=== PATIENT | male | born 1960 | race Caucasian/White ===

== ENCOUNTER 2021-12-03 13:26 | Inpatient (IN) ==
[2021-12-03] MEDS ORDERED: 0.9 % Sodium Chloride 1,000 ML IV ONE ×2 (18:05→22:41)
[2021-12-03] MEDS ORDERED: Iopamidol - 370 500 ML MLS IVP ONE (18:05)
[2021-12-03] MEDS ORDERED: Pantoprazole 40 MG VIAL IVP ONE (18:05)
[2021-12-03 18:13] LABS: Basophils # 0.1 K/mcL (0.0-0.2); Basophils % 0.4 %; Eosinophils % 0.1 %; Hematocrit 44.4 % (37.5-50.1); Hemoglobin 15.4 g/dL (12.9-16.9); Immature Granulocytes % 0.5 % (0-4); Lymphocytes % 8.7 %; Mean Corpuscular HGB Conc 34.7 g/dL (31.6-35.5); Mean Corpuscular Hemoglobin 35.2 pg (28.0-33.3); Mean Corpuscular Volume 101.4 fL (83.0-100.0); Monocytes # 0.5 K/mcL (0.0-1.3); Monocytes % 4.1 %; Neutrophils # 10.3 K/mcL (1.6-8.9); Nucleated Red Blood Cells 8.6 /100 WBC (0); Platelet Count 270 K/mcL (140-400); Red Blood Count 4.38 M/mcL (4.19-5.50); Red Cell Distribution Width 16.9 % (11.5-14.5); Segmented Neutrophils % 86.2 %
[2021-12-03 18:20] LABS: Platelet Estimate Normal (Normal); Reactive Lymphocytes Present (Not Present)
[2021-12-03] MEDS ORDERED: *HR* LORazepam 2 MG/ML VIAL IVP ONE (18:23)
[2021-12-03 18:33] LABS: Albumin 3.2 g/dL (3.5-5.7); Albumin/Globulin Ratio 0.5 (1.1-2.2); Bilirubin,Direct 1.4 mg/dL (0.0-0.2); Bilirubin,Indirect 1.6 mg/dL (0.0-1.0); Calcium 9.5 mg/dL (8.6-10.3); Globulin 6.5 g/dL (2.4-3.5); Potassium 4.8 mEq/L (3.5-5.1); Total Protein 9.7 g/dL (6.4-8.9); Troponin I 0.03 ng/mL (< 0.04)
[2021-12-03] MEDS ORDERED: LEVOFLOXACIN 500 MG/100 ML MLS IVPB ONE (18:35)
[2021-12-03 19:04] LABS: INR 1.6; Prothrombin Time 17.6 Seconds (9.4-12.1)
[2021-12-03 21:35] LABS: Bacteria,Urine Few per hpf (None-Few); Bilirubin,Urine Moderate (Negative); Blood,Urine Negative (Negative); Clarity,Urine Turbid (Clear); Color,Urine Dark-Yellow (Yellow); Glucose,Urine (UA) Normal (Normal); Hyaline Casts,Urine Many per lpf (None Seen); Ketones,Urine 10 mg/dL (Negative); Leukocyte Esterase,Urine Small (Negative); Mucus,Urine Few per lpf (None-Few); Nitrite,Urine Negative (Negative); PH,Urine 5.5 pH Units (5.0-8.0); Protein,Urine 30 mg/dL (Neg-Trace); Specific Gravity,Urine 1.026 (1.010-1.025); Squamous Epithelial Cell,Urine Few per hpf (None-Few); WBC,Urine 15-30 per hpf (0-3)
[2021-12-03 23:42] LABS: VBG HCO3 6 mEq/L (21-27); VBG PCO2 16 mmHg (41-51); VBG PH 7.15 pH Units (7.32-7.42); VBG PO2 250 mmHg (25-50)
[2021-12-04] MEDS: Norepinephrine 4 MG/254 ML IV.SOLN IVC SCH ×4 (00:51→15:45)
[2021-12-04] MEDS ORDERED: Ringers Solution, Lactated 1,000 ML IVC ONE (01:05)
[2021-12-04] MEDS: Pantoprazole 40 MG in 0.9 % Sodium Chloride Mini Bag 100 ML IVC SCH ×2 (01:58→05:19)
[2021-12-04] MEDS: Octreotide 400 MCG in 0.9 % Sodium Chloride 100 ML IVC SCH ×3 (02:02→20:52)
[2021-12-04] MEDS ORDERED: Naloxone 0.4 MG/ML INJ IVP PRN (02:29)
[2021-12-04] MEDS ORDERED: Ringers Solution, Lactated 1,000 ML IVC SCH (02:30)
[2021-12-04 02:41] LABS: VBG HCO3 8 mEq/L (21-27); VBG Ionized Calcium 0.89 mmol/L (1.15-1.35); VBG PCO2 28 mmHg (41-51); VBG PH 7.05 pH Units (7.32-7.42); VBG PO2 169 mmHg (25-50)
[2021-12-04] MEDS ORDERED: D5% in Water 1,000 ML IVC PRN (02:43)
[2021-12-04] MEDS ORDERED: Dextrose Gel 15 GM/37.5 ML TUBE PO PRN ×2 (02:43)
[2021-12-04 02:51] LABS: INR 2.2
[2021-12-04 02:53] LABS: Activated Partial Thrombo Time 47.3 Seconds (26.0-36.0)
[2021-12-04 03:02] LABS: Alanine Aminotransferase 160 Units/L (7-52); Albumin 2.4 g/dL (3.5-5.7); Albumin/Globulin Ratio 0.5 (1.1-2.2); Alkaline Phosphatase 91 Units/L (34-104); Aspartate Amino Transferase 400 Units/L (13-39); BUN/Creatinine Ratio 14 (6-26); Bilirubin,Direct 1.5 mg/dL (0.0-0.2); Bilirubin,Indirect 1.2 mg/dL (0.0-1.0); Bilirubin,Total 2.7 mg/dL (0.3-1.0); Blood Urea Nitrogen 24 mg/dL (8-23); Calcium 7.8 mg/dL (8.6-10.3); Carbon Dioxide 7 mEq/L (23-29); Chloride 96 mEq/L (98-107); Globulin 4.8 g/dL (2.4-3.5); Glucose 68 mg/dL (70-105); Magnesium 2.3 mg/dL (1.6-2.6); Osmolality,Calculated 272 (280-300); Phosphorous 7.8 mg/dL (2.7-4.5); Potassium 5.7 mEq/L (3.5-5.1); Sodium 130 mEq/L (136-145); Total Protein 7.2 g/dL (6.4-8.9)
[2021-12-04 03:35] LABS: Acetaminophen < 10 mcg/mL (10-20); Creatine Kinase 67 Units/L (30-223); Ethanol < 10 mg/dL (Less than 10); Lactate Dehydrogenase 681 Units/L (140-271); Salicylate < 2.5 mg/dL (15.0-30.0)
[2021-12-04] MEDS ORDERED: Vancomycin 1,250 MG/262.5 ML IV.SOLN IVPB SCH (04:00)
[2021-12-04 04:16] LABS: Hepatitis B Surface Antigen Nonreactive (Nonreactive)
[2021-12-04 04:18] LABS: ABG Base Excess -22 mEq/L (-2 to 3); ABG HCO3 6 mEq/L (21-27); ABG Oxygen Saturation 100 % (95-98); ABG PCO2 22 mmHg (35-45); ABG PH 7.06 pH Units (7.32-7.45); ABG PO2 255 mmHg (85-104); ABG TCO2 7 mEq/L (20-26); Blood Gas Modality ASSIST CONTROL; Blood Gas VT 450 cc
[2021-12-04] MEDS ORDERED: Sodium Bicarbonate 50 MEQ/50 ML VIAL IVP ONE (04:20)
[2021-12-04] MEDS: Sodium Bicarbonate 150 MEQ in D5% in Water 1,000 ML IVC SCH ×3 (04:24→23:48)
[2021-12-04] MEDS: *HR* Dextrose 50 % in Water (Syg) 50 ML SYRINGE IVP PRN (04:34)
[2021-12-04] MEDS: Ipratropium/Albuterol Neb 3 ML IH SCH ×4 (04:35→22:35)
[2021-12-04 04:45] LABS: Hepatitis C Virus Antibody Nonreactive (Nonreactive)
[2021-12-04 04:47] LABS: Hepatitis A Antibody IgM Nonreactive (Nonreactive)
[2021-12-04] MEDS: Insulin LISPRO 300 UNITS/3 ML VIAL SUBQ SCH ×6 (04:50→23:52)
[2021-12-04] MEDS: Lactulose Oral Soln 20 GM/30 ML UDC PO SCH ×3 (04:58→20:12)
[2021-12-04] MEDS: SODIUM ZIRCONIUM CYCLOSILICATE 5 GM POWD.PACK PO SCH ×3 (04:58→15:18)
[2021-12-04] MEDS: Artificial Tears SOLN 15 ML BOTTLE BOTH EYES SCH ×6 (05:19→23:52)
[2021-12-04] MEDS ORDERED: SODIUM CHLORIDE 0.9% IV ONE (05:45)
[2021-12-04] MEDS ORDERED: FOMEPIZOLE IV ONE (05:45)
[2021-12-04] MEDS ORDERED: Acetylcysteine IV 3,600 MG in D5% in Water 500 ML IVC ONE (06:02)
[2021-12-04] MEDS ORDERED: Acetylcysteine IV 7,300 MG in D5% in Water 1,000 ML IVC ONE (06:02)
[2021-12-04] MEDS ORDERED: Acetylcysteine IV 10,900 MG in D5% in Water 250 ML IVC ONE (06:02)
[2021-12-04] MEDS ORDERED: *HR* LORazepam 1 MG TABLET PO PRN (06:09)
[2021-12-04] MEDS ORDERED: *HR* LORazepam 2 MG/ML VIAL IVP PRN ×3 (06:09→11:35)
[2021-12-04 06:59] LABS: Hematocrit 32.3 % (37.5-50.1); Mean Corpuscular HGB Conc 33.1 g/dL (31.6-35.5); Mean Corpuscular Hemoglobin 34.4 pg (28.0-33.3); Mean Corpuscular Volume 103.9 fL (83.0-100.0); Nucleated Red Blood Cells 6.9 /100 WBC (0); Platelet Count 181 K/mcL (140-400); Red Blood Count 3.11 M/mcL (4.19-5.50); Red Cell Distribution Width 17.2 % (11.5-14.5); White Blood Count 13.8 K/mcL (4.3-11.1)
[2021-12-04] MEDS: FentaNYL (PF) 1,000 MCG/100 ML IV.SOLN IVC SCH ×3 (07:39→17:45)
[2021-12-04 07:48] LABS: INR 2.5; Prothrombin Time 27.9 Seconds (9.4-12.1)
[2021-12-04 07:50] LABS: Hemoglobin 10.7 g/dL (12.9-16.9)
[2021-12-04 07:51] LABS: Activated Partial Thrombo Time 42.9 Seconds (26.0-36.0)
[2021-12-04] MEDS: Aztreonam 1,000 MG in Water for inj. (sterile) 10 ML IVP SCH ×3 (07:57→23:49)
[2021-12-04] MEDS: Chlorhexidine Rinse 15 ML MOUTHWASH MM SCH ×2 (07:57→20:08)
[2021-12-04 08:04] LABS: Alanine Aminotransferase 267 Units/L (7-52); Albumin 2.1 g/dL (3.5-5.7); Albumin/Globulin Ratio 0.5 (1.1-2.2); Alkaline Phosphatase 79 Units/L (34-104); Aspartate Amino Transferase 828 Units/L (13-39); BUN/Creatinine Ratio 14 (6-26); Bilirubin,Direct 1.3 mg/dL (0.0-0.2); Bilirubin,Indirect 1.3 mg/dL (0.0-1.0); Bilirubin,Total 2.6 mg/dL (0.3-1.0); Blood Urea Nitrogen 24 mg/dL (8-23); Calcium 7.2 mg/dL (8.6-10.3); Carbon Dioxide 9 mEq/L (23-29); Chloride 97 mEq/L (98-107); Glucose 190 mg/dL (70-105); Osmolality,Calculated 287 (280-300); Potassium 5.5 mEq/L (3.5-5.1); Sodium 134 mEq/L (136-145); Total Protein 6.1 g/dL (6.4-8.9)
[2021-12-04 08:24] LABS: Hematocrit 32.8 % (37.5-50.1); Hemoglobin 11.1 g/dL (12.9-16.9)
[2021-12-04 08:28] LABS: Lymphocytes # 1.7 K/mcL (0.6-4.6); Monocytes # 0.8 K/mcL (0.0-1.3); Neutrophils # 11.3 K/mcL (1.6-8.9)
[2021-12-04 08:29] LABS: Platelet Estimate Normal (Normal)
[2021-12-04] MEDS: Pantoprazole 40 MG VIAL IVP SCH ×2 (08:56→20:08)
[2021-12-04] MEDS ORDERED: Pantoprazole 40 MG VIAL IVP SCH (09:00)
[2021-12-04] MEDS: Folic Acid 1 MG in 0.9 % Sodium Chloride 50 ML IVPB SCH (09:15)
[2021-12-04] MEDS ORDERED: 0.9 % Sodium Chloride 1,000 ML ONE (10:04)
[2021-12-04] MEDS ORDERED: 0.9 % Sodium Chloride 500 ML ONE ×2 (10:04→11:53)
[2021-12-04] MEDS: Thiamine (B-1) 200 MG in 0.9 % Sodium Chloride 50 ML IVPB SCH (10:52)
[2021-12-04] MEDS ORDERED: *HR* Heparin 5,000 UNIT/ML VIAL ONE (11:28)
[2021-12-04] MEDS ORDERED: *HR* Heparin 5,000 UNIT/ML VIAL IVP PRN (11:34)
[2021-12-04 12:38] LABS: Hepatitis B Core IgM Nonreactive (Nonreactive)
[2021-12-04] MEDS: PrismaSATE BGK 4/2.5 5,000 ML CRRT SCH ×5 (13:37→19:30)
[2021-12-04] MEDS: 0.9 % Sodium Chloride 1,000 ML PRIME SCH ×2 (13:38→19:31)
[2021-12-04 14:42] LABS: Hematocrit 25.2 % (37.5-50.1); Hemoglobin 8.7 g/dL (12.9-16.9)
[2021-12-04] MEDS: FOMEPIZOLE IV SCH ×2 (15:18→23:51)
[2021-12-04] MEDS: SODIUM CHLORIDE 0.9% IV SCH ×2 (15:18→23:51)
[2021-12-04] MEDS ORDERED: *HR* Etomidate 20 MG/10 ML AMPUL IVP ONE (16:19)
[2021-12-04] MEDS ORDERED: *HR* Rocuronium Bromide 50 MG/5 ML VIAL IVP ONE (16:19)
[2021-12-04] MEDS ORDERED: *HR* Midazolam HCl 5 MG/5 ML VIAL IVP ONE (16:19)
[2021-12-04] MEDS: Norepinephrine 32 MG/250 ML IV.SOLN IVC PRN (18:19)
[2021-12-04] MEDS ORDERED: 0.9 % Sodium Chloride 1,000 ML PRIME PRN (19:32)
[2021-12-04 20:22] LABS: INR 2.2; Prothrombin Time 24.9 Seconds (9.4-12.1)
[2021-12-04 20:30] LABS: Protein/Creatinine Ratio,Urine 1.7 mg/mg (0.00-0.20)
[2021-12-04 20:42] LABS: Albumin 2.6 g/dL (3.5-5.7); Albumin/Globulin Ratio 0.7 (1.1-2.2); Alkaline Phosphatase 99 Units/L (34-104); BUN/Creatinine Ratio 13 (6-26); Bilirubin,Total 3.3 mg/dL (0.3-1.0); Blood Urea Nitrogen 21 mg/dL (8-23); Calcium 6.9 mg/dL (8.6-10.3); Carbon Dioxide 22 mEq/L (23-29); Chloride 95 mEq/L (98-107); Glucose 340 mg/dL (70-105); Osmolality,Calculated 290 (280-300); Potassium 3.7 mEq/L (3.5-5.1); Sodium 132 mEq/L (136-145); Total Protein 6.6 g/dL (6.4-8.9)
[2021-12-04 20:43] LABS: Alanine Aminotransferase 1025 Units/L (7-52); Aspartate Amino Transferase > 3000 Units/L (13-39)
[2021-12-05] MEDS: PrismaSATE BGK 4/2.5 5,000 ML CRRT SCH ×12 (00:06→20:31)
[2021-12-05] MEDS: Artificial Tears SOLN 15 ML BOTTLE BOTH EYES SCH ×6 (03:07→22:41)
[2021-12-05 04:05] LABS: Basophils % 0.3 %; Eosinophils % 1.1 %; Hematocrit 30.2 % (37.5-50.1); Immature Granulocytes % 0.5 % (0-4); Lymphocytes # 2.2 K/mcL (0.6-4.6); Mean Corpuscular HGB Conc 34.8 g/dL (31.6-35.5); Mean Corpuscular Hemoglobin 35.1 pg (28.0-33.3); Mean Platelet Volume 9.2 fL (9.4-12.4); Monocytes # 0.6 K/mcL (0.0-1.3); Monocytes % 4.2 %; Neutrophils # 10.1 K/mcL (1.6-8.9); Platelet Count 146 K/mcL (140-400); Red Blood Count 2.99 M/mcL (4.19-5.50); Red Cell Distribution Width 16.7 % (11.5-14.5); Segmented Neutrophils % 76.9 %; White Blood Count 13.1 K/mcL (4.3-11.1)
[2021-12-05 04:10] LABS: Eosinophils # 0.1 K/mcL (0.0-0.6); Hemoglobin 10.5 g/dL (12.9-16.9)
[2021-12-05 04:14] LABS: INR 2.2; Prothrombin Time 24.9 Seconds (9.4-12.1)
[2021-12-05 04:16] LABS: Activated Partial Thrombo Time 37.1 Seconds (26.0-36.0)
[2021-12-05 04:21] LABS: Anisocytosis 1+ (Not Present); Macrocytosis Present (Not Present); Platelet Estimate Normal (Normal); Poikilocytosis 1+ (Not Present); Target Cells 1+ (Not Present)
[2021-12-05 04:27] LABS: ABG Base Excess 1 mEq/L (-2 to 3); ABG HCO3 26 mEq/L (21-27); ABG Oxygen Saturation 95 % (95-98); ABG PCO2 44 mmHg (35-45); ABG PH 7.38 pH Units (7.32-7.45); ABG PO2 79 mmHg (85-104); ABG TCO2 27 mEq/L (20-26); Blood Gas VT 450 cc
[2021-12-05] MEDS: Insulin LISPRO 300 UNITS/3 ML VIAL SUBQ SCH ×6 (04:27→22:42)
[2021-12-05] MEDS: Ipratropium/Albuterol Neb 3 ML IH SCH ×4 (04:27→22:14)
[2021-12-05 04:40] LABS: Alanine Aminotransferase 1324 Units/L (7-52); Albumin 2.7 g/dL (3.5-5.7); Albumin/Globulin Ratio 0.6 (1.1-2.2); Alkaline Phosphatase 114 Units/L (34-104); Aspartate Amino Transferase > 3000 Units/L (13-39); BUN/Creatinine Ratio 12 (6-26); Bilirubin,Direct 1.9 mg/dL (0.0-0.2); Bilirubin,Indirect 1.7 mg/dL (0.0-1.0); Bilirubin,Total 3.6 mg/dL (0.3-1.0); Blood Urea Nitrogen 17 mg/dL (8-23); Calcium 6.9 mg/dL (8.6-10.3); Carbon Dioxide 26 mEq/L (23-29); Chloride 95 mEq/L (98-107); Globulin 4.4 g/dL (2.4-3.5); Glucose 252 mg/dL (70-105); Magnesium 1.9 mg/dL (1.6-2.6); Osmolality,Calculated 282 (280-300); Phosphorous 1.7 mg/dL (2.7-4.5); Potassium 3.6 mEq/L (3.5-5.1); Sodium 131 mEq/L (136-145); Total Protein 7.1 g/dL (6.4-8.9)
[2021-12-05] MEDS: Octreotide 400 MCG in 0.9 % Sodium Chloride 100 ML IVC SCH ×4 (05:29→22:20)
[2021-12-05] MEDS: Calcium Gluconate 1gm/50mL 1 GM/50 ML BAG IVPB SCH ×2 (05:30→06:05)
[2021-12-05] MEDS: SODIUM CHLORIDE 0.9% IV SCH (06:05)
[2021-12-05] MEDS: FOMEPIZOLE IV SCH (06:05)
[2021-12-05] MEDS: 0.9 % Sodium Chloride 1,000 ML PRIME SCH ×3 (07:36→07:38)
[2021-12-05] MEDS: Lactulose Oral Soln 20 GM/30 ML UDC PO SCH (07:54)
[2021-12-05] MEDS: Aztreonam 1,000 MG in Water for inj. (sterile) 10 ML IVP SCH ×3 (07:54→22:40)
[2021-12-05] MEDS: Chlorhexidine Rinse 15 ML MOUTHWASH MM SCH ×2 (07:54→19:44)
[2021-12-05] MEDS: Pantoprazole 40 MG VIAL IVP SCH ×2 (07:55→19:44)
[2021-12-05] MEDS: Folic Acid 1 MG in 0.9 % Sodium Chloride 50 ML IVPB SCH (07:59)
[2021-12-05] MEDS: Thiamine (B-1) 200 MG in 0.9 % Sodium Chloride 50 ML IVPB SCH (08:00)
[2021-12-05] MEDS: FentaNYL (PF) 1,000 MCG/100 ML IV.SOLN IVC SCH ×3 (08:03→22:01)
[2021-12-05] MEDS: Sodium Bicarbonate 150 MEQ in D5% in Water 1,000 ML IVC SCH ×3 (09:10→18:53)
[2021-12-05] MEDS: Norepinephrine 32 MG/250 ML IV.SOLN IVC PRN ×2 (09:18→22:30)
[2021-12-05 11:40] LABS: Hematocrit 30.5 % (37.5-50.1); Hemoglobin 10.6 g/dL (12.9-16.9)
[2021-12-05] MEDS: Hydrocortisone Sodium Succ 100 MG/2 ML VIAL IVP SCH ×3 (13:39→22:06)
[2021-12-05 14:38] LABS: Appearance of Peritoneal Fl CLEAR (Clear)
[2021-12-05 14:43] LABS: RBC,Peritoneal Fluid < 2000 RBC/mcL
[2021-12-05 14:53] LABS: Amylase,Peritoneal Fluid 20 Units/L (No Ref Range); Glucose,Peritoneal Fluid 244 mg/dL (No Ref Range); LDH,Peritoneal Fluid 110 Units/L (No Ref Range); Total Protein,Peritoneal Fluid < 2.0 g/dL
[2021-12-05 15:02] LABS: Basophils,Peritoneal Fluid 0 %; Eosinophils,Peritoneal Fluid 0 %
[2021-12-05] MEDS ORDERED: Potassium Phosphate 44 MEQ in 0.9 % Sodium Chloride 250 ML IVPB PRN (15:15)
[2021-12-05 15:40] LABS: Hematocrit 30.9 % (37.5-50.1)
[2021-12-05 15:43] LABS: ABG Ionized Calcium 0.94 mmol/L (1.15-1.35)
[2021-12-05] MEDS: Albumin 25% 25gram/100mL 25 GM/100 ML IV.SOLN IVPB SCH ×2 (15:46→22:39)
[2021-12-05 15:59] LABS: Calcium 7.4 mg/dL (8.6-10.3); Phosphorous 1.5 mg/dL (2.7-4.5); Potassium 3.8 mEq/L (3.5-5.1)
[2021-12-05 18:04] LABS: Amphetamine Screen,Urine Negative ng/mL (Cutoff=1000); Barbiturate Screen,Urine Negative ng/mL (Cutoff=200); Benzodiazepines Screen,Urine Positive ng/mL (Cutoff=200); Cannabinoid Screen,Urine Negative ng/mL (Cutoff = 50); Cocaine Screen,Urine Negative ng/mL (Cutoff= 300); Opiate Screen,Urine Negative ng/mL (Cutoff=300); Phencyclidine Screen,Urine Negative ng/mL (Cutoff=25)
[2021-12-05] MEDS: Potassium Chloride 40 MEQ/200 ML BAG IVPB PRN (18:49)
[2021-12-05] MEDS: Calcium Gluconate 1gm/50mL 1 GM/50 ML BAG IVPB PRN (18:50)
[2021-12-05] MEDS: Insulin DETEMIR 100 UNIT/ML X5UNITS SUBQ SCH (19:44)
[2021-12-05 20:41] LABS: Hematocrit 28.5 % (37.5-50.1)
[2021-12-05 23:28] LABS: Chloride,Urine < 15 mEq/L; Creatinine,Urine 70 mg/dL; Potassium,Urine 60.7 mEq/L; Sodium, Urine 11.8 mEq/L
[2021-12-06] MEDS: PrismaSATE BGK 4/2.5 5,000 ML CRRT SCH ×9 (01:40→21:20)
[2021-12-06 03:04] LABS: Basophils % 0.1 %; Immature Granulocytes % 0.8 % (0-4); Mean Corpuscular Volume 99.6 fL (83.0-100.0); Segmented Neutrophils % 85.2 %
[2021-12-06 03:06] LABS: Hematocrit 27.8 % (37.5-50.1); Hemoglobin 9.7 g/dL (12.9-16.9); Immature Platelets 5.6 % (1.1-6.1); Lymphocytes # 1.1 K/mcL (0.6-4.6); Lymphocytes % 7.8 %; Mean Corpuscular HGB Conc 34.9 g/dL (31.6-35.5); Mean Corpuscular Hemoglobin 34.8 pg (28.0-33.3); Mean Platelet Volume 9.8 fL (9.4-12.4); Monocytes # 0.9 K/mcL (0.0-1.3); Monocytes % 6.1 %; Neutrophils # 12.1 K/mcL (1.6-8.9); Nucleated Red Blood Cells 2.2 /100 WBC (0); Red Blood Count 2.79 M/mcL (4.19-5.50); White Blood Count 14.2 K/mcL (4.3-11.1)
[2021-12-06] MEDS: Insulin LISPRO 300 UNITS/3 ML VIAL SUBQ SCH ×5 (03:06→19:31)
[2021-12-06] MEDS: Artificial Tears SOLN 15 ML BOTTLE BOTH EYES SCH ×6 (03:06→23:07)
[2021-12-06 03:08] LABS: Platelet Count 78 K/mcL (140-400)
[2021-12-06 03:19] LABS: INR 2.6; Prothrombin Time 29.1 Seconds (9.4-12.1)
[2021-12-06 03:21] LABS: Activated Partial Thrombo Time 37.9 Seconds (26.0-36.0)
[2021-12-06] MEDS: Ipratropium/Albuterol Neb 3 ML IH SCH ×4 (03:45→22:09)
[2021-12-06 03:59] LABS: ABG Base Excess 1 mEq/L (-2 to 3); ABG HCO3 25 mEq/L (21-27); ABG Oxygen Saturation 96 % (95-98); ABG PCO2 35 mmHg (35-45); ABG PH 7.47 pH Units (7.32-7.45); ABG PO2 75 mmHg (85-104); ABG TCO2 26 mEq/L (20-26); Blood Gas VT 450 cc
[2021-12-06] MEDS: Calcium Gluconate 1gm/50mL 1 GM/50 ML BAG IVPB SCH ×3 (04:16→06:11)
[2021-12-06] MEDS: Hydrocortisone Sodium Succ 100 MG/2 ML VIAL IVP SCH ×4 (04:17→22:12)
[2021-12-06 04:22] LABS: Alanine Aminotransferase 1076 Units/L (7-52); Albumin 3.6 g/dL (3.5-5.7); Albumin/Globulin Ratio 0.9 (1.1-2.2); Alkaline Phosphatase 116 Units/L (34-104); Aspartate Amino Transferase > 3000 Units/L (13-39); BUN/Creatinine Ratio 8 (6-26); Bilirubin,Direct 2.6 mg/dL (0.0-0.2); Bilirubin,Indirect 2.4 mg/dL (0.0-1.0); Blood Urea Nitrogen 9 mg/dL (8-23); Calcium 7.9 mg/dL (8.6-10.3); Carbon Dioxide 25 mEq/L (23-29); Chloride 99 mEq/L (98-107); Globulin 3.9 g/dL (2.4-3.5); Glucose 122 mg/dL (70-105); Osmolality,Calculated 276 (280-300); Phosphorous 3.1 mg/dL (2.7-4.5); Potassium 5.1 mEq/L (3.5-5.1); Sodium 133 mEq/L (136-145); Total Protein 7.5 g/dL (6.4-8.9)
[2021-12-06] MEDS: Octreotide 400 MCG in 0.9 % Sodium Chloride 100 ML IVC SCH ×3 (06:50→23:59)
[2021-12-06] MEDS: Folic Acid 1 MG in 0.9 % Sodium Chloride 50 ML IVPB SCH (07:37)
[2021-12-06] MEDS: Insulin DETEMIR 100 UNIT/ML X5UNITS SUBQ SCH ×2 (07:37→19:31)
[2021-12-06] MEDS: Albumin 25% 25gram/100mL 25 GM/100 ML IV.SOLN IVPB SCH ×3 (07:37→23:00)
[2021-12-06] MEDS: Thiamine (B-1) 200 MG in 0.9 % Sodium Chloride 50 ML IVPB SCH (07:37)
[2021-12-06] MEDS: Chlorhexidine Rinse 15 ML MOUTHWASH MM SCH ×2 (07:40→19:30)
[2021-12-06] MEDS: Aztreonam 1,000 MG in Water for inj. (sterile) 10 ML IVP SCH ×3 (07:40→23:06)
[2021-12-06] MEDS: Pantoprazole 40 MG VIAL IVP SCH ×2 (07:41→19:30)
[2021-12-06] MEDS: FentaNYL (PF) 1,000 MCG/100 ML IV.SOLN IVC SCH ×2 (08:12→17:41)
[2021-12-06] MEDS: Sodium Bicarbonate 150 MEQ in D5% in Water 1,000 ML IVC SCH ×2 (09:30→17:04)
[2021-12-06 19:11] LABS: Hematocrit 24.4 % (37.5-50.1); Hemoglobin 8.6 g/dL (12.9-16.9)
[2021-12-06 19:11] LABS: VBG Ionized Calcium 0.96 mmol/L (1.15-1.35)
[2021-12-06] MEDS: Calcium Gluconate 1gm/50mL 1 GM/50 ML BAG IVPB PRN (19:31)
[2021-12-06] MEDS ORDERED: WATER IVC ONE (23:00)
[2021-12-06] MEDS ORDERED: ACETYLCYSTEINE IVC ONE (23:00)
[2021-12-06] MEDS ORDERED: D5 IVC ONE (23:00)
[2021-12-06 23:17] LABS: VBG Ionized Calcium 1.02 mmol/L (1.15-1.35)
[2021-12-07] MEDS ORDERED: WATER IVC ONE
[2021-12-07] MEDS ORDERED: D5 IVC ONE
[2021-12-07] MEDS ORDERED: ACETYLCYSTEINE IVC ONE
[2021-12-07] MEDS: Insulin LISPRO 300 UNITS/3 ML VIAL SUBQ SCH ×6 (00:01→20:55)
[2021-12-07] MEDS: PrismaSATE BGK 4/2.5 5,000 ML CRRT SCH ×2 (02:20)
[2021-12-07] MEDS: Artificial Tears SOLN 15 ML BOTTLE BOTH EYES SCH ×5 (03:19→20:55)
[2021-12-07] MEDS: Norepinephrine 32 MG/250 ML IV.SOLN IVC PRN (03:23)
[2021-12-07] MEDS: FentaNYL (PF) 1,000 MCG/100 ML IV.SOLN IVC SCH ×2 (03:28→12:32)
[2021-12-07 03:32] LABS: VBG Ionized Calcium 0.98 mmol/L (1.15-1.35)
[2021-12-07 03:32] LABS: Basophils % 0.1 %; Hemoglobin 8.8 g/dL (12.9-16.9)
[2021-12-07 03:34] LABS: Hematocrit 24.6 % (37.5-50.1); Immature Granulocytes % 0.8 % (0-4); Immature Platelets 7.8 % (1.1-6.1); Lymphocytes # 0.9 K/mcL (0.6-4.6); Lymphocytes % 9.4 %; Mean Corpuscular HGB Conc 35.8 g/dL (31.6-35.5); Mean Corpuscular Hemoglobin 35.2 pg (28.0-33.3); Mean Corpuscular Volume 98.4 fL (83.0-100.0); Monocytes # 0.6 K/mcL (0.0-1.3); Monocytes % 5.7 %; Neutrophils # 8.3 K/mcL (1.6-8.9); Nucleated Red Blood Cells 2.3 /100 WBC (0); Platelet Count 52 K/mcL (140-400); Red Cell Distribution Width 15.7 % (11.5-14.5); White Blood Count 9.9 K/mcL (4.3-11.1)
[2021-12-07 03:42] LABS: Prothrombin Time 33.1 Seconds (9.4-12.1)
[2021-12-07 03:44] LABS: Activated Partial Thrombo Time 44.3 Seconds (26.0-36.0)
[2021-12-07 03:59] LABS: Albumin 4.1 g/dL (3.5-5.7); Albumin/Globulin Ratio 1.3 (1.1-2.2); Alkaline Phosphatase 89 Units/L (34-104); BUN/Creatinine Ratio 12 (6-26); Bilirubin,Direct 2.3 mg/dL (0.0-0.2); Bilirubin,Indirect 2.6 mg/dL (0.0-1.0); Bilirubin,Total 4.9 mg/dL (0.3-1.0); Blood Urea Nitrogen 9 mg/dL (8-23); Calcium 8.6 mg/dL (8.6-10.3); Carbon Dioxide 23 mEq/L (23-29); Chloride 98 mEq/L (98-107); Globulin 3.2 g/dL (2.4-3.5); Glucose 192 mg/dL (70-105); Magnesium 2.3 mg/dL (1.6-2.6); Osmolality,Calculated 282 (280-300); Sodium 134 mEq/L (136-145); Total Protein 7.3 g/dL (6.4-8.9)
[2021-12-07 04:08] LABS: Alanine Aminotransferase 660 Units/L (7-52); Aspartate Amino Transferase 1201 Units/L (13-39)
[2021-12-07] MEDS: Ipratropium/Albuterol Neb 3 ML IH SCH ×4 (04:25→21:11)
[2021-12-07 04:30] LABS: ABG Base Excess 0 mEq/L (-2 to 3); ABG HCO3 23 mEq/L (21-27); ABG Oxygen Saturation 99 % (95-98); ABG PCO2 31 mmHg (35-45); ABG PH 7.48 pH Units (7.32-7.45); ABG PO2 116 mmHg (85-104); ABG TCO2 24 mEq/L (20-26); Blood Gas VT 450 cc
[2021-12-07] MEDS: Calcium Gluconate 1gm/50mL 1 GM/50 ML BAG IVPB PRN ×3 (04:30→16:08)
[2021-12-07] MEDS: ACETYLCYSTEINE IVC SCH ×2 (04:46→22:35)
[2021-12-07] MEDS: WATER IVC SCH ×2 (04:46→22:35)
[2021-12-07] MEDS: D5 IVC SCH ×2 (04:46→22:35)
[2021-12-07] MEDS: Sodium Bicarbonate 150 MEQ in D5% in Water 1,000 ML IVC SCH ×3 (05:10→22:36)
[2021-12-07] MEDS: Hydrocortisone Sodium Succ 100 MG/2 ML VIAL IVP SCH ×3 (05:13→16:00)
[2021-12-07] MEDS: Aztreonam 1,000 MG in Water for inj. (sterile) 10 ML IVP SCH ×2 (08:12→14:57)
[2021-12-07] MEDS: Chlorhexidine Rinse 15 ML MOUTHWASH MM SCH ×2 (08:12→20:55)
[2021-12-07] MEDS: Pantoprazole 40 MG VIAL IVP SCH ×2 (08:12→20:55)
[2021-12-07] MEDS: Albumin 25% 25gram/100mL 25 GM/100 ML IV.SOLN IVPB SCH ×2 (08:13→14:57)
[2021-12-07] MEDS: Insulin DETEMIR 100 UNIT/ML X5UNITS SUBQ SCH ×2 (08:13→20:55)
[2021-12-07] MEDS ORDERED: *HR* Heparin 5,000 UNIT/ML VIAL ONE (08:52)
[2021-12-07 14:56] LABS: VBG Ionized Calcium 1.02 mmol/L (1.15-1.35)
[2021-12-07] MEDS: *HR* LORazepam 2 MG/ML VIAL IVP PRN (16:35)
[2021-12-07] MEDS: Dexmedetomidine HCl 400 MCG/100 ML MLS IVC SCH (17:18)
[2021-12-07 21:00] LABS: Alanine Aminotransferase 410 Units/L (7-52); Aspartate Amino Transferase 616 Units/L (13-39); Vancomycin,Random 17 mcg/mL
[2021-12-08] MEDS: Aztreonam 1,000 MG in Water for inj. (sterile) 10 ML IVP SCH ×4 (00:02→23:33)
[2021-12-08] MEDS: Hydrocortisone Sodium Succ 100 MG/2 ML VIAL IVP SCH ×5 (00:02→22:18)
[2021-12-08] MEDS: Artificial Tears SOLN 15 ML BOTTLE BOTH EYES SCH ×7 (00:03→23:35)
[2021-12-08] MEDS: Albumin 25% 25gram/100mL 25 GM/100 ML IV.SOLN IVPB SCH ×4 (00:03→23:34)
[2021-12-08] MEDS: Insulin LISPRO 300 UNITS/3 ML VIAL SUBQ SCH ×7 (00:03→23:34)
[2021-12-08] MEDS: Dexmedetomidine HCl 400 MCG/100 ML MLS IVC SCH (02:15)
[2021-12-08 03:51] LABS: INR 2.3; Prothrombin Time 25.7 Seconds (9.4-12.1)
[2021-12-08] MEDS: Ipratropium/Albuterol Neb 3 ML IH SCH ×4 (03:51→20:26)
[2021-12-08 03:54] LABS: Activated Partial Thrombo Time 44.9 Seconds (26.0-36.0)
[2021-12-08 03:57] LABS: ABG Base Excess -2 mEq/L (-2 to 3); ABG HCO3 20 mEq/L (21-27); ABG Oxygen Saturation 98 % (95-98); ABG PCO2 24 mmHg (35-45); ABG PH 7.53 pH Units (7.32-7.45); ABG PO2 87 mmHg (85-104); ABG TCO2 21 mEq/L (20-26); Blood Gas VT 450 cc
[2021-12-08] MEDS: *HR* LORazepam 2 MG/ML VIAL IVP PRN (04:35)
[2021-12-08 05:25] LABS: Albumin 3.9 g/dL (3.5-5.7); Albumin/Globulin Ratio 1.5 (1.1-2.2); Bilirubin,Direct 2.5 mg/dL (0.0-0.2); Bilirubin,Indirect 2.1 mg/dL (0.0-1.0); Bilirubin,Total 4.6 mg/dL (0.3-1.0); Calcium 9.2 mg/dL (8.6-10.3); Globulin 2.6 g/dL (2.4-3.5); Total Protein 6.5 g/dL (6.4-8.9)
[2021-12-08 05:47] LABS: Basophils % 0.1 %; Monocytes % 7.9 %; Red Blood Count 2.51 M/mcL (4.19-5.50); Segmented Neutrophils % 80.2 %
[2021-12-08 05:48] LABS: Hematocrit 24.1 % (37.5-50.1); Hemoglobin 8.7 g/dL (12.9-16.9); Immature Granulocytes % 0.6 % (0-4); Immature Platelets 7.7 % (1.1-6.1); Lymphocytes # 1.2 K/mcL (0.6-4.6); Lymphocytes % 11.2 %; Mean Corpuscular HGB Conc 36.1 g/dL (31.6-35.5); Mean Corpuscular Hemoglobin 34.7 pg (28.0-33.3); Mean Platelet Volume 10.4 fL (9.4-12.4); Monocytes # 0.8 K/mcL (0.0-1.3); Neutrophils # 8.4 K/mcL (1.6-8.9); Nucleated Red Blood Cells 0.6 /100 WBC (0); Red Cell Distribution Width 15.8 % (11.5-14.5); White Blood Count 10.5 K/mcL (4.3-11.1)
[2021-12-08 05:50] LABS: Platelet Count 50 K/mcL (140-400)
[2021-12-08] MEDS: Potassium Chloride 40 MEQ/200 ML BAG IVPB PRN ×3 (05:53→17:55)
[2021-12-08] MEDS: Pantoprazole 40 MG VIAL IVP SCH ×2 (08:17→20:19)
[2021-12-08] MEDS: Chlorhexidine Rinse 15 ML MOUTHWASH MM SCH ×2 (08:17→20:19)
[2021-12-08] MEDS: Sodium Bicarbonate 150 MEQ in D5% in Water 1,000 ML IVC SCH (08:17)
[2021-12-08] MEDS: Insulin DETEMIR 100 UNIT/ML X5UNITS SUBQ SCH ×2 (08:17→20:19)
[2021-12-08] MEDS ORDERED: *HR* LORazepam 2 MG/ML VIAL IVP PRN ×3 (10:55)
[2021-12-08] MEDS: Thiamine (B-1) 100 MG, Folic Acid 1 MG, MVI, adult with vitamin K 10 ML in 0.9 % Sodi... IVPB SCH (17:50)
[2021-12-09 04:17] LABS: Basophils % 0.1 %; Hematocrit 22.5 % (37.5-50.1); Immature Granulocytes % 0.4 % (0-4); Immature Platelets 13.5 % (1.1-6.1); Lymphocytes % 8.9 %; Mean Corpuscular HGB Conc 35.6 g/dL (31.6-35.5); Mean Corpuscular Hemoglobin 34.6 pg (28.0-33.3); Mean Corpuscular Volume 97.4 fL (83.0-100.0); Mean Platelet Volume 11.3 fL (9.4-12.4); Monocytes % 8.9 %; Nucleated Red Blood Cells 0.4 /100 WBC (0); Red Blood Count 2.31 M/mcL (4.19-5.50); Red Cell Distribution Width 15.9 % (11.5-14.5); Segmented Neutrophils % 81.7 %; White Blood Count 11.2 K/mcL (4.3-11.1)
[2021-12-09 04:22] LABS: Neutrophils # 9.2 K/mcL (1.6-8.9); Platelet Count 44 K/mcL (140-400)
[2021-12-09] MEDS: Ipratropium/Albuterol Neb 3 ML IH SCH ×4 (04:22→19:59)
[2021-12-09 04:34] LABS: Albumin 4.1 g/dL (3.5-5.7); Albumin/Globulin Ratio 1.9 (1.1-2.2); Bilirubin,Direct 2.3 mg/dL (0.0-0.2); Bilirubin,Indirect 1.8 mg/dL (0.0-1.0); Bilirubin,Total 4.1 mg/dL (0.3-1.0); Calcium 9.1 mg/dL (8.6-10.3); Globulin 2.2 g/dL (2.4-3.5); Potassium 3.9 mEq/L (3.5-5.1); Total Protein 6.3 g/dL (6.4-8.9)
[2021-12-09 04:58] LABS: ABG Base Excess -2 mEq/L (-2 to 3); ABG HCO3 22 mEq/L (21-27); ABG Oxygen Saturation 98 % (95-98); ABG PCO2 31 mmHg (35-45); ABG PH 7.46 pH Units (7.32-7.45); ABG PO2 91 mmHg (85-104); ABG TCO2 23 mEq/L (20-26); Blood Gas Modality ASSIST CONTROL; Blood Gas VT 450 cc
[2021-12-09] MEDS: Insulin LISPRO 300 UNITS/3 ML VIAL SUBQ SCH ×6 (05:39→23:48)
[2021-12-09] MEDS: Artificial Tears SOLN 15 ML BOTTLE BOTH EYES SCH ×6 (05:39→23:47)
[2021-12-09] MEDS: Hydrocortisone Sodium Succ 100 MG/2 ML VIAL IVP SCH ×3 (05:39→17:37)
[2021-12-09] MEDS: Albumin 25% 25gram/100mL 25 GM/100 ML IV.SOLN IVPB SCH ×3 (08:20→23:48)
[2021-12-09] MEDS: Aztreonam 1,000 MG in Water for inj. (sterile) 10 ML IVP SCH ×3 (08:21→23:47)
[2021-12-09] MEDS: Pantoprazole 40 MG VIAL IVP SCH ×2 (08:22→19:40)
[2021-12-09] MEDS: Chlorhexidine Rinse 15 ML MOUTHWASH MM SCH ×2 (08:23→19:40)
[2021-12-09] MEDS: Insulin DETEMIR 100 UNIT/ML X5UNITS SUBQ SCH ×2 (08:26→19:41)
[2021-12-09] MEDS: Dexmedetomidine HCl 400 MCG/100 ML MLS IVC SCH ×2 (16:29→18:03)
[2021-12-09] MEDS: Thiamine (B-1) 100 MG, Folic Acid 1 MG, MVI, adult with vitamin K 10 ML in 0.9 % Sodi... IVPB SCH (17:37)
[2021-12-09] MEDS: FentaNYL (PF) 1,000 MCG/100 ML IV.SOLN IVC SCH (19:49)
[2021-12-10 03:39] LABS: Basophils % 0.2 %; Lymphocytes % 8.6 %; Mean Corpuscular Volume 96.9 fL (83.0-100.0); Nucleated Red Blood Cells 0.2 /100 WBC (0)
[2021-12-10 03:42] LABS: Hematocrit 21.8 % (37.5-50.1); Hemoglobin 7.8 g/dL (12.9-16.9); Immature Granulocytes % 0.7 % (0-4); Immature Platelets 9.6 % (1.1-6.1); Lymphocytes # 1.1 K/mcL (0.6-4.6); Mean Corpuscular HGB Conc 35.8 g/dL (31.6-35.5); Mean Corpuscular Hemoglobin 34.7 pg (28.0-33.3); Mean Platelet Volume 10.6 fL (9.4-12.4); Monocytes # 1.1 K/mcL (0.0-1.3); Red Blood Count 2.25 M/mcL (4.19-5.50); Red Cell Distribution Width 16.2 % (11.5-14.5); Segmented Neutrophils % 81.5 %; White Blood Count 12.3 K/mcL (4.3-11.1)
[2021-12-10] MEDS: Ipratropium/Albuterol Neb 3 ML IH SCH ×4 (03:46→21:40)
[2021-12-10 03:49] LABS: Platelet Count 70 K/mcL (140-400)
[2021-12-10] MEDS: Insulin LISPRO 300 UNITS/3 ML VIAL SUBQ SCH ×6 (03:49→23:29)
[2021-12-10] MEDS: Artificial Tears SOLN 15 ML BOTTLE BOTH EYES SCH ×6 (03:50→23:29)
[2021-12-10 03:58] LABS: Albumin 4.1 g/dL (3.5-5.7); Bilirubin,Total 3.6 mg/dL (0.3-1.0); Calcium 9.2 mg/dL (8.6-10.3); Globulin 2.1 g/dL (2.4-3.5); Potassium 4.1 mEq/L (3.5-5.1); Total Protein 6.2 g/dL (6.4-8.9)
[2021-12-10 04:52] LABS: ABG Base Excess -3 mEq/L (-2 to 3); ABG HCO3 21 mEq/L (21-27); ABG Oxygen Saturation 97 % (95-98); ABG PCO2 30 mmHg (35-45); ABG PH 7.44 pH Units (7.32-7.45); ABG PO2 82 mmHg (85-104); ABG TCO2 22 mEq/L (20-26); Blood Gas VT 450 cc
[2021-12-10] MEDS: Hydrocortisone Sodium Succ 100 MG/2 ML VIAL IVP SCH (05:05)
[2021-12-10] MEDS: Albumin 25% 25gram/100mL 25 GM/100 ML IV.SOLN IVPB SCH (07:35)
[2021-12-10] MEDS: Chlorhexidine Rinse 15 ML MOUTHWASH MM SCH ×2 (07:35→19:51)
[2021-12-10] MEDS: Aztreonam 1,000 MG in Water for inj. (sterile) 10 ML IVP SCH (07:36)
[2021-12-10] MEDS: Pantoprazole 40 MG VIAL IVP SCH ×2 (07:37→19:51)
[2021-12-10] MEDS: Dexmedetomidine HCl 400 MCG/100 ML MLS IVC SCH (07:51)
[2021-12-10] MEDS: Insulin DETEMIR 100 UNIT/ML X5UNITS SUBQ SCH ×2 (07:58→19:51)
[2021-12-10] MEDS: Thiamine (B-1) 100 MG, Folic Acid 1 MG, MVI, adult with vitamin K 10 ML in 0.9 % Sodi... IVPB SCH (17:17)
[2021-12-10] MEDS ORDERED: Aztreonam 1,000 MG in Water for inj. (sterile) 10 ML IVP SCH (20:00)
[2021-12-11] MEDS: Dexmedetomidine HCl 400 MCG/100 ML MLS IVC SCH (02:11)
[2021-12-11] MEDS: Insulin LISPRO 300 UNITS/3 ML VIAL SUBQ SCH ×6 (03:28→23:03)
[2021-12-11] MEDS: Artificial Tears SOLN 15 ML BOTTLE BOTH EYES SCH ×6 (03:28→23:03)
[2021-12-11 03:36] LABS: Basophils % 0.1 %; Hematocrit 24.9 % (37.5-50.1); Mean Corpuscular Volume 97.6 fL (83.0-100.0); Red Blood Count 2.55 M/mcL (4.19-5.50)
[2021-12-11 03:38] LABS: Eosinophils # 0.1 K/mcL (0.0-0.6); Eosinophils % 1.1 %; Immature Granulocytes % 0.6 % (0-4); Lymphocytes # 1.6 K/mcL (0.6-4.6); Lymphocytes % 14.6 %; Mean Corpuscular HGB Conc 36.1 g/dL (31.6-35.5); Mean Corpuscular Hemoglobin 35.3 pg (28.0-33.3); Mean Platelet Volume 11.4 fL (9.4-12.4); Monocytes # 0.8 K/mcL (0.0-1.3); Monocytes % 7.7 %; Neutrophils # 8.2 K/mcL (1.6-8.9); Nucleated Red Blood Cells 0.2 /100 WBC (0); Red Cell Distribution Width 17.1 % (11.5-14.5); Segmented Neutrophils % 75.9 %; White Blood Count 10.8 K/mcL (4.3-11.1)
[2021-12-11 03:47] LABS: Platelet Count 90 K/mcL (140-400)
[2021-12-11 03:49] LABS: VBG Ionized Calcium 1.13 mmol/L (1.15-1.35)
[2021-12-11 04:02] LABS: Albumin 3.8 g/dL (3.5-5.7); Albumin/Globulin Ratio 1.7 (1.1-2.2); Bilirubin,Total 3.7 mg/dL (0.3-1.0); Calcium 9.2 mg/dL (8.6-10.3); Globulin 2.2 g/dL (2.4-3.5); Magnesium 2.1 mg/dL (1.6-2.6); Phosphorous 4.2 mg/dL (2.7-4.5); Potassium 3.4 mEq/L (3.5-5.1)
[2021-12-11] MEDS: Ipratropium/Albuterol Neb 3 ML IH SCH ×4 (04:13→21:48)
[2021-12-11] MEDS: Potassium Chloride 40 MEQ/200 ML BAG IVPB PRN (04:26)
[2021-12-11] MEDS: Norepinephrine 4 MG/254 ML IV.SOLN IVC PRN (05:02)
[2021-12-11 05:16] LABS: ABG Base Excess -3 mEq/L (-2 to 3); ABG HCO3 20 mEq/L (21-27); ABG Oxygen Saturation 99 % (95-98); ABG PCO2 28 mmHg (35-45); ABG PH 7.47 pH Units (7.32-7.45); ABG PO2 113 mmHg (85-104); ABG TCO2 21 mEq/L (20-26); Blood Gas Modality ASSIST CONTROL; Blood Gas VT 450 cc
[2021-12-11] MEDS: Chlorhexidine Rinse 15 ML MOUTHWASH MM SCH ×2 (07:26→19:23)
[2021-12-11] MEDS: Pantoprazole 40 MG VIAL IVP SCH ×2 (07:26→19:23)
[2021-12-11] MEDS: Insulin DETEMIR 100 UNIT/ML X5UNITS SUBQ SCH ×2 (07:27→19:30)
[2021-12-11] MEDS ORDERED: Calcium Gluconate 1gm/50mL 1 GM/50 ML BAG IVPB PRN (08:17)
[2021-12-11] MEDS ORDERED: Albumin 25% 25gram/100mL 25 GM/100 ML IV.SOLN IVPB ONE (08:28)
[2021-12-11] MEDS ORDERED: Albumin 25% 25gram/100mL 25 GM/100 ML IV.SOLN ONE (08:32)
[2021-12-11] MEDS ORDERED: 0.9 % Sodium Chloride 500 ML IVC ONE (09:03)
[2021-12-11] MEDS ORDERED: 0.9 % Sodium Chloride 500 ML ONE (09:07)
[2021-12-11 09:34] LABS: ABG Base Excess -3 mEq/L (-2 to 3); ABG HCO3 21 mEq/L (21-27); ABG Oxygen Saturation 97 % (95-98); ABG PCO2 31 mmHg (35-45); ABG PH 7.43 pH Units (7.32-7.45); ABG PO2 87 mmHg (85-104); ABG TCO2 21 mEq/L (20-26); Blood Gas Modality AF; Blood Gas VT 450 cc
[2021-12-11] MEDS ORDERED: 0.9 % Sodium Chloride 1,000 ML IVC SCH (09:45)
[2021-12-11] MEDS: Hydrocortisone Sodium Succ 100 MG/2 ML VIAL IVP SCH (10:26)
[2021-12-11 15:05] LABS: Calcium 8.9 mg/dL (8.6-10.3); Potassium 4.3 mEq/L (3.5-5.1)
[2021-12-11] MEDS: *HR* Dextrose 50 % in Water (Syg) 50 ML SYRINGE IVP PRN (15:33)
[2021-12-11 18:17] LABS: Basophils % 0.1 %; Eosinophils # 0.2 K/mcL (0.0-0.6); Eosinophils % 1.3 %; Hemoglobin 8.9 g/dL (12.9-16.9); Immature Granulocytes % 0.7 % (0-4); Lymphocytes # 1.6 K/mcL (0.6-4.6); Lymphocytes % 8.8 %; Mean Corpuscular HGB Conc 35.6 g/dL (31.6-35.5); Mean Corpuscular Hemoglobin 35.3 pg (28.0-33.3); Mean Corpuscular Volume 99.2 fL (83.0-100.0); Mean Platelet Volume 10.7 fL (9.4-12.4); Monocytes # 1.6 K/mcL (0.0-1.3); Neutrophils # 14.6 K/mcL (1.6-8.9); Platelet Count 103 K/mcL (140-400); Red Blood Count 2.52 M/mcL (4.19-5.50); Red Cell Distribution Width 17.6 % (11.5-14.5); Segmented Neutrophils % 80.1 %
[2021-12-11 18:21] LABS: White Blood Count 18.2 K/mcL (4.3-11.1)
[2021-12-11] MEDS: D5% in Water 1,000 ML IVC SCH (18:38)
[2021-12-12] MEDS: Dexmedetomidine HCl 400 MCG/100 ML MLS IVC SCH (01:45)
[2021-12-12] MEDS: Ipratropium/Albuterol Neb 3 ML IH SCH ×4 (03:27→20:13)
[2021-12-12] MEDS: Insulin LISPRO 300 UNITS/3 ML VIAL SUBQ SCH ×6 (03:31→23:53)
[2021-12-12] MEDS: Artificial Tears SOLN 15 ML BOTTLE BOTH EYES SCH ×6 (03:31→23:53)
[2021-12-12 03:37] LABS: Basophils % 0.1 %; Hemoglobin 8.7 g/dL (12.9-16.9); Immature Granulocytes % 0.5 % (0-4); Lymphocytes % 9.9 %
[2021-12-12 03:38] LABS: Eosinophils # 0.1 K/mcL (0.0-0.6); Hematocrit 24.1 % (37.5-50.1); Immature Platelets 6.6 % (1.1-6.1); Lymphocytes # 1.3 K/mcL (0.6-4.6); Mean Corpuscular HGB Conc 36.1 g/dL (31.6-35.5); Mean Corpuscular Hemoglobin 35.2 pg (28.0-33.3); Mean Corpuscular Volume 97.6 fL (83.0-100.0); Mean Platelet Volume 10.4 fL (9.4-12.4); Monocytes # 0.8 K/mcL (0.0-1.3); Monocytes % 6.1 %; Neutrophils # 10.5 K/mcL (1.6-8.9); Red Blood Count 2.47 M/mcL (4.19-5.50); Red Cell Distribution Width 17.4 % (11.5-14.5); Segmented Neutrophils % 82.4 %; White Blood Count 12.7 K/mcL (4.3-11.1)
[2021-12-12 03:39] LABS: Platelet Count 99 K/mcL (140-400)
[2021-12-12 03:42] LABS: VBG Ionized Calcium 1.06 mmol/L (1.15-1.35)
[2021-12-12 03:55] LABS: Calcium 8.7 mg/dL (8.6-10.3); Phosphorous 4.5 mg/dL (2.7-4.5); Potassium 3.9 mEq/L (3.5-5.1)
[2021-12-12] MEDS: Calcium Gluconate 1gm/50mL 1 GM/50 ML BAG IVPB PRN (04:39)
[2021-12-12] MEDS: Potassium Chloride 40 MEQ/200 ML BAG IVPB PRN (04:40)
[2021-12-12] MEDS: Hydrocortisone Sodium Succ 100 MG/2 ML VIAL IVP SCH (07:42)
[2021-12-12] MEDS: Pantoprazole 40 MG VIAL IVP SCH ×2 (07:43→19:17)
[2021-12-12] MEDS: Insulin DETEMIR 100 UNIT/ML X5UNITS SUBQ SCH (07:43)
[2021-12-12] MEDS: Chlorhexidine Rinse 15 ML MOUTHWASH MM SCH ×2 (07:43→19:17)
[2021-12-12 09:58] LABS: ABG Base Excess -4 mEq/L (-2 to 3); ABG HCO3 20 mEq/L (21-27); ABG Oxygen Saturation 96 % (95-98); ABG PCO2 29 mmHg (35-45); ABG PH 7.44 pH Units (7.32-7.45); ABG PO2 75 mmHg (85-104); ABG TCO2 21 mEq/L (20-26)
[2021-12-12] MEDS: D5% in Water 1,000 ML IVC SCH (11:20)
[2021-12-12 13:04] LABS: Calcium 8.9 mg/dL (8.6-10.3); Potassium 4.4 mEq/L (3.5-5.1)
[2021-12-13] MEDS: *HR* LORazepam 2 MG/ML VIAL IVP PRN (03:32)
[2021-12-13] MEDS: Ipratropium/Albuterol Neb 3 ML IH SCH ×4 (03:40→23:15)
[2021-12-13 03:42] LABS: Basophils % 0.1 %; Eosinophils # 0.1 K/mcL (0.0-0.6); Eosinophils % 0.4 %; Hematocrit 23.9 % (37.5-50.1); Hemoglobin 8.5 g/dL (12.9-16.9); Immature Granulocytes % 0.6 % (0-4); Lymphocytes # 1.6 K/mcL (0.6-4.6); Lymphocytes % 9.4 %; Mean Corpuscular HGB Conc 35.6 g/dL (31.6-35.5); Mean Corpuscular Hemoglobin 35.3 pg (28.0-33.3); Mean Corpuscular Volume 99.2 fL (83.0-100.0); Mean Platelet Volume 10.5 fL (9.4-12.4); Monocytes # 0.9 K/mcL (0.0-1.3); Monocytes % 5.1 %; Neutrophils # 14.5 K/mcL (1.6-8.9); Platelet Count 118 K/mcL (140-400); Red Blood Count 2.41 M/mcL (4.19-5.50); Red Cell Distribution Width 17.3 % (11.5-14.5); Segmented Neutrophils % 84.4 %; White Blood Count 17.2 K/mcL (4.3-11.1)
[2021-12-13 03:47] LABS: Calcium 8.9 mg/dL (8.6-10.3)
[2021-12-13] MEDS: D5% in Water 1,000 ML IVC SCH ×2 (04:54→23:20)
[2021-12-13] MEDS: Artificial Tears SOLN 15 ML BOTTLE BOTH EYES SCH ×6 (04:54→23:20)
[2021-12-13] MEDS: Insulin LISPRO 300 UNITS/3 ML VIAL SUBQ SCH ×6 (04:54→23:20)
[2021-12-13] MEDS: Chlorhexidine Rinse 15 ML MOUTHWASH MM SCH ×2 (08:07→19:17)
[2021-12-13] MEDS: Hydrocortisone Sodium Succ 100 MG/2 ML VIAL IVP SCH (08:07)
[2021-12-13] MEDS: Pantoprazole 40 MG VIAL IVP SCH ×2 (08:07→20:12)
[2021-12-13 09:41] LABS: ABG Base Excess -3 mEq/L (-2 to 3); ABG HCO3 20 mEq/L (21-27); ABG Oxygen Saturation 99 % (95-98); ABG PCO2 30 mmHg (35-45); ABG PH 7.44 pH Units (7.32-7.45); ABG PO2 143 mmHg (85-104); ABG TCO2 21 mEq/L (20-26)
[2021-12-13 10:36] LABS: Magnesium 1.9 mg/dL (1.6-2.6); Phosphorous 2.9 mg/dL (2.7-4.5)
[2021-12-13 13:12] LABS: VBG Ionized Calcium 1.15 mmol/L (1.15-1.35)
[2021-12-13] MEDS ORDERED: Furosemide 20 MG/2 ML VIAL IVP ONE (17:23)
[2021-12-14] MEDS: Aztreonam 2,000 MG in 0.9 % Sodium Chloride Mini Bag 100 ML IVP SCH ×2 (00:37→08:24)
[2021-12-14] MEDS ORDERED: Vancomycin 1,250 MG/262.5 ML IV.SOLN IVPB ONE (01:00)
[2021-12-14] MEDS ORDERED: *HR* Etomidate 20 MG/10 ML AMPUL IVP ONE ×2 (03:00→11:47)
[2021-12-14] MEDS: Norepinephrine 4 MG/254 ML IV.SOLN IVC PRN ×6 (03:25→20:36)
[2021-12-14] MEDS ORDERED: Artificial Tears SOLN 15 ML BOTTLE BOTH EYES PRN (04:00)
[2021-12-14] MEDS: Ipratropium/Albuterol Neb 3 ML IH SCH ×4 (04:01→22:54)
[2021-12-14] MEDS: Artificial Tears SOLN 15 ML BOTTLE BOTH EYES SCH ×10 (04:35→20:32)
[2021-12-14] MEDS: Insulin LISPRO 300 UNITS/3 ML VIAL SUBQ SCH ×5 (04:36→20:33)
[2021-12-14] MEDS: FentaNYL (PF) 1,000 MCG/100 ML IV.SOLN IVC SCH ×3 (04:36→20:35)
[2021-12-14] MEDS: Midazolam HCl 50 MG/50 ML IV.SOLN IVC SCH ×2 (04:37→20:34)
[2021-12-14 05:11] LABS: ABG Base Excess -6 mEq/L (-2 to 3); ABG HCO3 19 mEq/L (21-27); ABG Oxygen Saturation 100 % (95-98); ABG PCO2 38 mmHg (35-45); ABG PH 7.32 pH Units (7.32-7.45); ABG PO2 234 mmHg (85-104); ABG TCO2 21 mEq/L (20-26); Blood Gas VT 500 cc
[2021-12-14 05:24] LABS: Basophils % 0.2 %; Eosinophils # 0.1 K/mcL (0.0-0.6); Eosinophils % 0.3 %; Hematocrit 31.6 % (37.5-50.1); Immature Granulocytes % 0.5 % (0-4); Lymphocytes # 1.1 K/mcL (0.6-4.6); Lymphocytes % 5.2 %; Mean Corpuscular HGB Conc 34.5 g/dL (31.6-35.5); Mean Corpuscular Hemoglobin 34.7 pg (28.0-33.3); Mean Corpuscular Volume 100.6 fL (83.0-100.0); Monocytes # 0.4 K/mcL (0.0-1.3); Monocytes % 2.1 %; Nucleated Red Blood Cells 0.1 /100 WBC (0); Platelet Count 204 K/mcL (140-400); Red Blood Count 3.14 M/mcL (4.19-5.50); Red Cell Distribution Width 18.5 % (11.5-14.5); Segmented Neutrophils % 91.7 %; White Blood Count 20.5 K/mcL (4.3-11.1)
[2021-12-14 05:27] LABS: Hemoglobin 10.9 g/dL (12.9-16.9); Neutrophils # 18.8 K/mcL (1.6-8.9)
[2021-12-14 05:49] LABS: Albumin 3.4 g/dL (3.5-5.7); Albumin/Globulin Ratio 1.3 (1.1-2.2); Bilirubin,Total 5.9 mg/dL (0.3-1.0); Calcium 8.6 mg/dL (8.6-10.3); Globulin 2.6 g/dL (2.4-3.5); Magnesium 2.1 mg/dL (1.6-2.6); Phosphorous 3.7 mg/dL (2.7-4.5); Potassium 3.5 mEq/L (3.5-5.1)
[2021-12-14 05:59] LABS: Acanthocytes 1+ (Not Present); Platelet Estimate Normal (Normal); Poikilocytosis 1+ (Not Present); Target Cells 1+ (Not Present)
[2021-12-14 06:00] LABS: Macrocytosis Present (Not Present)
[2021-12-14] MEDS: Pantoprazole 40 MG VIAL IVP SCH ×2 (08:24→20:33)
[2021-12-14] MEDS: Hydrocortisone Sodium Succ 100 MG/2 ML VIAL IVP SCH (08:25)
[2021-12-14] MEDS: Chlorhexidine Rinse 15 ML MOUTHWASH MM SCH ×2 (08:25→20:33)
[2021-12-14] MEDS: Potassium Chloride 40 MEQ/200 ML BAG IVPB PRN (08:25)
[2021-12-14] MEDS ORDERED: Chlorhexidine Rinse 15 ML MOUTHWASH MM SCH (09:00)
[2021-12-14] MEDS ORDERED: levoFLOXacin 750 MG/150 ML 750 MG/150 ML BAG IVPB SCH ×2 (09:00→13:00)
[2021-12-14 09:45] LABS: Bilirubin,Direct 3.4 mg/dL (0.0-0.2); Bilirubin,Indirect 2.5 mg/dL (0.0-1.0)
[2021-12-14] MEDS ORDERED: *HR* Midazolam HCl 5 MG/5 ML VIAL IVP ONE (11:47)
[2021-12-14] MEDS ORDERED: *HR* Midazolam HCl 2 MG/2 ML VIAL IVP ONE (11:47)
[2021-12-14] MEDS: D5% in Water 1,000 ML IVC SCH (15:14)
[2021-12-14] MEDS: Dexmedetomidine HCl 400 MCG/100 ML MLS IVC SCH (16:42)
[2021-12-14 16:59] LABS: Bacteria,Urine Few per hpf (None-Few); Bilirubin,Urine Small (Negative); Blood,Urine Moderate (Negative); Clarity,Urine Turbid (Clear); Color,Urine Dark-Yellow (Yellow); Glucose,Urine (UA) 30 mg/dL (Normal); Hyaline Casts,Urine Many per lpf (None Seen); Ketones,Urine Trace mg/dL (Negative); Leukocyte Esterase,Urine Small (Negative); Mucus,Urine Few per lpf (None-Few); Nitrite,Urine Negative (Negative); Protein,Urine 50 mg/dL (Neg-Trace); RBC,Urine 30-50 per hpf (0-3); Specific Gravity,Urine 1.022 (1.010-1.025); Squamous Epithelial Cell,Urine Few per hpf (None-Few); WBC,Urine 15-30 per hpf (0-3)
[2021-12-15] MEDS: Artificial Tears SOLN 15 ML BOTTLE BOTH EYES SCH ×9 (02:09→20:27)
[2021-12-15] MEDS: Insulin LISPRO 300 UNITS/3 ML VIAL SUBQ SCH ×6 (02:09→20:12)
[2021-12-15] MEDS: Ipratropium/Albuterol Neb 3 ML IH SCH ×4 (03:55→22:01)
[2021-12-15] MEDS: Norepinephrine 4 MG/254 ML IV.SOLN IVC PRN ×9 (04:20→23:15)
[2021-12-15 04:27] LABS: ABG Base Excess -8 mEq/L (-2 to 3); ABG HCO3 18 mEq/L (21-27); ABG Oxygen Saturation 82 % (95-98); ABG PCO2 37 mmHg (35-45); ABG PH 7.29 pH Units (7.32-7.45); ABG PO2 52 mmHg (85-104); ABG TCO2 19 mEq/L (20-26); Blood Gas VT 500 cc
[2021-12-15 04:36] LABS: Mean Platelet Volume 10.3 fL (9.4-12.4)
[2021-12-15 04:37] LABS: Hematocrit 26.6 % (37.5-50.1); Hemoglobin 8.9 g/dL (12.9-16.9); Mean Corpuscular HGB Conc 33.5 g/dL (31.6-35.5); Mean Corpuscular Hemoglobin 34.6 pg (28.0-33.3); Mean Corpuscular Volume 103.5 fL (83.0-100.0); Nucleated Red Blood Cells 0.1 /100 WBC (0); Platelet Count 156 K/mcL (140-400); Red Blood Count 2.57 M/mcL (4.19-5.50); Red Cell Distribution Width 18.6 % (11.5-14.5); White Blood Count 26.5 K/mcL (4.3-11.1)
[2021-12-15 04:44] LABS: INR 2.7; Prothrombin Time 29.8 Seconds (9.4-12.1)
[2021-12-15 05:04] LABS: Albumin 2.9 g/dL (3.5-5.7); Albumin/Globulin Ratio 1.1 (1.1-2.2); Bilirubin,Direct 3.4 mg/dL (0.0-0.2); Bilirubin,Indirect 1.9 mg/dL (0.0-1.0); Bilirubin,Total 5.3 mg/dL (0.3-1.0); Globulin 2.6 g/dL (2.4-3.5); Magnesium 2.1 mg/dL (1.6-2.6); Phosphorous 4.2 mg/dL (2.7-4.5); Potassium 4.7 mEq/L (3.5-5.1); Total Protein 5.5 g/dL (6.4-8.9)
[2021-12-15 05:34] LABS: Lymphocytes # 2.1 K/mcL (0.6-4.6); Monocytes # 0.5 K/mcL (0.0-1.3); Neutrophils # 23.9 K/mcL (1.6-8.9); Platelet Estimate Normal (Normal)
[2021-12-15] MEDS ORDERED: Vancomycin 500 MG in 0.9 % Sodium Chloride Mini Bag 100 ML IVPB ONE (06:00)
[2021-12-15] MEDS: FentaNYL (PF) 1,000 MCG/100 ML IV.SOLN IVC SCH ×2 (07:16→17:34)
[2021-12-15] MEDS: D5% in Water 1,000 ML IVC SCH ×2 (07:48→23:03)
[2021-12-15] MEDS: Pantoprazole 40 MG VIAL IVP SCH ×2 (07:48→20:27)
[2021-12-15] MEDS: Hydrocortisone Sodium Succ 100 MG/2 ML VIAL IVP SCH (07:49)
[2021-12-15] MEDS: Chlorhexidine Rinse 15 ML MOUTHWASH MM SCH ×2 (07:49→20:27)
[2021-12-15 16:21] LABS: Folate 16.4 ng/mL (3.0-16.0)
[2021-12-15] MEDS: Dexmedetomidine HCl 400 MCG/100 ML MLS IVC SCH (17:27)
[2021-12-15] MEDS: Meropenem 1,000 MG in 0.9 % Sodium Chloride 10 ML IVP SCH (17:41)
[2021-12-15] MEDS: Midazolam HCl 50 MG/50 ML IV.SOLN IVC SCH (23:39)
[2021-12-16] MEDS: Artificial Tears SOLN 15 ML BOTTLE BOTH EYES SCH ×4 (00:35→12:23)
[2021-12-16] MEDS: Insulin LISPRO 300 UNITS/3 ML VIAL SUBQ SCH ×4 (00:35→12:22)
[2021-12-16] MEDS: Norepinephrine 4 MG/254 ML IV.SOLN IVC PRN ×5 (01:26→09:10)
[2021-12-16] MEDS: FentaNYL (PF) 1,000 MCG/100 ML IV.SOLN IVC SCH (02:05)
[2021-12-16 04:20] LABS: Basophils # 0.1 K/mcL (0.0-0.2); Basophils % 0.2 %; Eosinophils % 0.1 %; Hematocrit 26.3 % (37.5-50.1); Hemoglobin 8.7 g/dL (12.9-16.9); Immature Granulocytes % 0.8 % (0-4); Lymphocytes # 2.1 K/mcL (0.6-4.6); Lymphocytes % 8.6 %; Mean Corpuscular HGB Conc 33.1 g/dL (31.6-35.5); Mean Corpuscular Hemoglobin 34.5 pg (28.0-33.3); Mean Corpuscular Volume 104.4 fL (83.0-100.0); Mean Platelet Volume 10.8 fL (9.4-12.4); Neutrophils # 21.4 K/mcL (1.6-8.9); Nucleated Red Blood Cells 0.1 /100 WBC (0); Platelet Count 176 K/mcL (140-400); Red Blood Count 2.52 M/mcL (4.19-5.50); Red Cell Distribution Width 19.2 % (11.5-14.5); Segmented Neutrophils % 89.3 %
[2021-12-16 04:27] LABS: INR 2.4; Monocytes # 0.2 K/mcL (0.0-1.3); Prothrombin Time 26.3 Seconds (9.4-12.1)
[2021-12-16 04:30] LABS: Activated Partial Thrombo Time 49.4 Seconds (26.0-36.0)
[2021-12-16] MEDS: Ipratropium/Albuterol Neb 3 ML IH SCH ×3 (04:31→15:43)
[2021-12-16 04:39] LABS: Albumin 2.8 g/dL (3.5-5.7); Albumin/Globulin Ratio 0.9 (1.1-2.2); Bilirubin,Direct 3.1 mg/dL (0.0-0.2); Bilirubin,Indirect 1.5 mg/dL (0.0-1.0); Bilirubin,Total 4.6 mg/dL (0.3-1.0); Calcium 7.9 mg/dL (8.6-10.3); Phosphorous 5.9 mg/dL (2.7-4.5); Total Protein 5.8 g/dL (6.4-8.9)
[2021-12-16 04:57] LABS: Platelet Estimate Normal (Normal); Reactive Lymphocytes Present (Not Present)
[2021-12-16 04:59] LABS: ABG Base Excess -12 mEq/L (-2 to 3); ABG HCO3 16 mEq/L (21-27); ABG Oxygen Saturation 92 % (95-98); ABG PCO2 45 mmHg (35-45); ABG PH 7.16 pH Units (7.32-7.45); ABG PO2 80 mmHg (85-104); ABG TCO2 17 mEq/L (20-26); Blood Gas Modality ASSIST CONTROL; Blood Gas VT 500 cc
[2021-12-16] MEDS: Meropenem 1,000 MG in 0.9 % Sodium Chloride 10 ML IVP SCH (05:06)
[2021-12-16] MEDS ORDERED: Sodium Bicarbonate 75 MEQ in 0.45 % Sodium Chloride 1,000 ML IVC SCH (05:43)
[2021-12-16] MEDS: Chlorhexidine Rinse 15 ML MOUTHWASH MM SCH (09:09)
[2021-12-16] MEDS: Pantoprazole 40 MG VIAL IVP SCH (09:09)
[2021-12-16] MEDS ORDERED: Sodium Bicarbonate 150 MEQ in D5% in Water 1,000 ML IVC SCH (09:30)
[2021-12-16] MEDS ORDERED: *HR* LORazepam 2 MG/ML VIAL IVP PRN (11:45)
[2021-12-16] MEDS ORDERED: Glycopyrrolate 0.2 MG/ML VIAL IVP PRN (11:46)
== END 2021-12-16 14:45 | disposition expired | DRG 870 ==
LOC: EMEROOARM 13:26 → ICNU 12-04 03:02
PROVIDERS: ADMIT Internal Medicine; ATTEND Internal Medicine